=== PATIENT | female | born 1940 | race African-American/Black ===

== ENCOUNTER → 2017-03-06 | Outpatient (CLI) | payer OTHER | LOC: RAD 02-27 03:11 | DX: Z12.31 Encounter for screening mammogram for malignant neoplasm of breast (principal) ==

== ENCOUNTER 2019-02-21 13:54 | Emergency (ER) | payer OTHER ==
[~2019-02-21] VITALS: Ht 162.6 cm; Wt 72.6 kg
[2019-02-21 15:30] LABS: ABSOLUTE NEUTROPHILS 5.3 thou/uL (1.4-8.2); BASOPHILS 0.9 % (0.0-2.0); EOSINOPHILS 2.8 % (0.0-3.0); HEMATOCRIT 32.3 % (37.0-47.0); HEMOGLOBIN 10.6 gm/dL (12.0-15.0); MCH 27.4 pg (26.0-34.0); MCHC 32.8 g/dL (28.0-37.0); MCV 83.5 fL (80.0-100.0); MONOCYTES 7.8 % (1.0-8.0); PLATELET COUNT 165 thou/uL (150-400); POLYS 61.5 % (36.0-66.0); RBC 3.87 mil/uL (4.20-5.00); RDW 14.4 % (10.5-14.5); WBC 8.6 thou/uL (4.0-11.0)
[2019-02-21 15:34] LABS: CALCIUM 9.7 mg/dL (8.5-10.1); CREATININE 1.4 mg/dL (0.6-1.0); POTASSIUM 3.2 mmol/L (3.5-5.1)
[2019-02-21 15:39] LABS: APTT 28.5 Seconds (24.5-32.8); PROTIME 10.5 Seconds (9.3-11.4)
[2019-02-21 15:40] LABS: ALBUMIN 3.3 g/dL (3.4-5.0); TOTAL BILIRUBIN 0.9 mg/dL (<0.1-1.0); TOTAL PROTEIN 6.6 g/dL (6.4-8.2)
[2019-02-21 16:29] VITALS: BP 169/89
== END 2019-02-21 16:29 | disposition home or self-care (01) ==
LOC: ER 13:54
PROVIDERS: Emergency Medicine
DX: N95.0 Postmenopausal bleeding (principal); D64.9 Anemia, unspecified; E87.6 Hypokalemia; R94.4 Abnormal results of kidney function studies; Z88.2 Allergy status to sulfonamides

== ENCOUNTER → 2019-03-18 | Outpatient (CLI) | payer OTHER | LOC: ULTRA 10:13 | DX: Z78.0 Asymptomatic menopausal state (principal) ==